=== PATIENT | female | born 1990 | race Caucasian/White ===

== ENCOUNTER 2017-08-17 20:25 | Emergency (ER) | payer OTHER ==
[~2017-08-17] VITALS: Ht 170.2 cm; Wt 63.3 kg
[2017-08-17 20:52] LABS: POINT-OF-CARE METER ID UU13113778; POINT-OF-CARE USER ID 611181311
[2017-08-17 21:45] LABS: ADD MIUA? NO; BILIRUBIN NEGATIVE; BLOOD NEGATIVE; COLOR YELLOW ((YELLOW)); GLUCOSE (STRIP) >=500; KETONES 80; LEUKOCYTES NEGATIVE; NITRITE NEGATIVE; PROTEIN (STRIP) NEGATIVE; SPECIFIC GRAVITY 1.029 (1.000-1.030); UROBILINOGEN 0.2 MG/DL (0.2-1.0)
[2017-08-17 22:04] LABS: UCUL ADDED? NO
[2017-08-17 23:16] LABS: HEMATOCRIT 39.3 % (36.0-46.0); MCH 28.4 PG (29.0-34.0); MCHC 33.3 G/DL (30.0-36.0); MCV 85.2 FL (83-99); MEAN PLAT.VOLUME 8.6 uM^3 (9.5-12.4); PLATELET COUNT 261 K/uL (156-360); RBC DIS.WIDTH-CV 13.4 % (11.8-14.6); RED BLOOD COUNT 4.61 M/uL (3.80-5.20); WHITE BLOOD COUNT 5.4 K/uL (4.1-10.2)
[2017-08-17 23:24] LABS: CHLORIDE 99 mEq/L (99-109); POTASSIUM 3.9 mEq/L (3.7-5.4); SODIUM 133 mEq/L (136-147)
[2017-08-17 23:26] LABS: GLUCOSE 230 mg/dL (70-99)
[2017-08-17 23:27] LABS: ANION GAP 10 MEQ/L (2-14)
[2017-08-17 23:29] LABS: ALKALINE PHOSPHATASE 95 IU/L (3-129)
[2017-08-17 23:30] LABS: GFR ESTIMATE (CALCULATED) > 59 mL/min/
[2017-08-17 23:31] LABS: UREA NITROGEN (BUN) 10 mg/dL (9-23)
[2017-08-17 23:38] LABS: QUANTITATIVE HCG < 4.0 MIU/ML
[2017-08-18 01:20] LABS: POINT-OF-CARE METER ID UU13113747
[2017-08-18 03:15] LABS: POINT-OF-CARE METER ID UU13113747
[2017-08-18 03:49] VITALS: BP 119/71
== END 2017-08-18 03:52 | disposition home or self-care (01) ==
LOC: EME 20:25
PROVIDERS: Emergency Medicine
DX: E10.65 Type 1 diabetes mellitus with hyperglycemia (principal); F17.200 Nicotine dependence, unspecified, uncomplicated
CPT/HCPCS: 80053; 81003; 82803; 82948; 84702; 85027; 99281; 99285

== ENCOUNTER 2017-10-07 01:24 | Emergency (ER) | payer OTHER ==
[~2017-10-07] VITALS: Ht 170.2 cm; Wt 69.6 kg
[2017-10-07 02:13] LABS: CARBON DIOXIDE (BICARBONATE) 29.9 MEQ/L (20-31)
[2017-10-07 02:14] LABS: HEMATOCRIT 35.1 % (36.0-46.0); MCH 29.1 PG (29.0-34.0); MCHC 32.8 G/DL (30.0-36.0); MCV 88.9 FL (83-99); MEAN PLAT.VOLUME 8.6 uM^3 (9.5-12.4); PLATELET COUNT 277 K/uL (156-360); RBC DIS.WIDTH-CV 13.2 % (11.8-14.6); RBC DIS.WIDTH-SD 43.3 % (39-53); RED BLOOD COUNT 3.95 M/uL (3.80-5.20); WHITE BLOOD COUNT 4.9 K/uL (4.1-10.2)
[2017-10-07 02:24] LABS: CHLORIDE 99 mEq/L (99-109); POTASSIUM 4.4 mEq/L (3.7-5.4); SODIUM 133 mEq/L (136-147)
[2017-10-07 02:25] LABS: MAGNESIUM 2.1 mg/dL (1.3-2.7)
[2017-10-07 02:28] LABS: ANION GAP 9 MEQ/L (2-14)
[2017-10-07 02:29] LABS: TOTAL BILIRUBIN 0.5 mg/dL (0.0-1.0)
[2017-10-07 02:31] LABS: ALKALINE PHOSPHATASE 110 IU/L (3-129); GFR ESTIMATE (CALCULATED) > 59 mL/min/
[2017-10-07 02:32] LABS: UREA NITROGEN (BUN) 17 mg/dL (9-23)
[2017-10-07 02:34] LABS: CREATINE KINASE 75 IU/L (1-294); LIPASE 25 U/L (1.0-51.0); TOTAL CK 75 IU/L (1-294)
[2017-10-07 02:40] LABS: QUANTITATIVE HCG < 4.0 MIU/ML
[2017-10-07 02:42] LABS: SAMPLE HEMOLYSIS CHECK 0; SAMPLE ICTERIC CHECK 0; SAMPLE LIPEMIA CHECK 0
[2017-10-07 02:51] LABS: GLUCOSE 502 mg/dL (70-99)
[2017-10-07 03:17] LABS: POINT-OF-CARE METER ID UU13113702
[2017-10-07 03:24] LABS: ADD MIUA? NO; BILIRUBIN NEGATIVE; BLOOD NEGATIVE; COLOR COLORLESS ((YELLOW)); GLUCOSE (STRIP) >=500; KETONES NEGATIVE; LEUKOCYTES NEGATIVE; NITRITE NEGATIVE; PROTEIN (STRIP) NEGATIVE; SPECIFIC GRAVITY 1.024 (1.000-1.030); UCUL ADDED? NO; UROBILINOGEN 0.2 MG/DL (0.2-1.0)
[2017-10-07 05:03] LABS: POINT-OF-CARE METER ID UU13113702
[2017-10-07] MEDS ORDERED: LIDODERM 5% P1 PATCH TD (05:27)
[2017-10-07] MEDS ORDERED: COLACE100 MG PO (05:27)
[2017-10-07 05:46] VITALS: BP 112/80
[2017-10-07 08:01] LABS: Estimated Average Glucose 203 mg/dL (70-123); HEMOGLOBIN A1c (GLYCOHEMOGLOB) 8.7 % HGB (Below 5.7)
== END 2017-10-07 05:50 | disposition home or self-care (01) ==
LOC: EME 01:24
PROVIDERS: Emergency Medicine
DX: K59.00 Constipation, unspecified (principal); E10.65 Type 1 diabetes mellitus with hyperglycemia; Z79.4 Long term (current) use of insulin; M54.5 Low back pain; F17.200 Nicotine dependence, unspecified, uncomplicated
CPT/HCPCS: 74176; 80053; 81003; 82010; 82550; 82553; 82803; 82948; 83036; 83605; 83690; 83735; 84100; 84702; 85027; 99281; 99285; J1885; J2270; J7030

== ENCOUNTER 2018-02-11 17:38 | Emergency (ER) | payer OTHER ==
[~2018-02-11] VITALS: Ht 170.2 cm; Wt 60.4 kg
[~2018-02-11 17:38] MED LIST: COLACE100 MG PO; LIDODERM 5% P1 PATCH TD
[2018-02-11 18:11] VITALS: BP 127/81
== END 2018-02-11 18:13 | disposition home or self-care (01) ==
LOC: EME 17:38
DX: T40.1X1A Poisoning by heroin, accidental (unintentional), initial encounter (principal); F17.200 Nicotine dependence, unspecified, uncomplicated; E10.9 Type 1 diabetes mellitus without complications
CPT/HCPCS: 82948; 99281; 99283

== ENCOUNTER 2018-03-20 23:45 | Emergency (ER) | payer OTHER ==
[~2018-03-20] VITALS: Ht 170.2 cm; Wt 68.7 kg
[2018-03-21 01:06] LABS: HEMATOCRIT 35.6 % (36.0-46.0); HEMOGLOBIN 12.4 G/DL (11.9-15.5); MCH 29.5 PG (29.0-34.0); MCHC 34.8 G/DL (30.0-36.0); MCV 84.8 FL (83-99); PLATELET COUNT 272 K/uL (156-360); RBC DIS.WIDTH-CV 14.2 % (11.8-14.6); RBC DIS.WIDTH-SD 43.9 % (39-53); WHITE BLOOD COUNT 7.6 K/uL (4.1-10.2)
[2018-03-21 01:19] LABS: CHLORIDE 108 mEq/L (99-109); POTASSIUM 3.9 mEq/L (3.7-5.4); SODIUM 140 mEq/L (136-147)
[2018-03-21 01:21] LABS: GLUCOSE 75 mg/dL (70-99)
[2018-03-21 01:24] LABS: SERUM ETHYL ALCOHOL < 10 mg/dL
[2018-03-21 01:25] LABS: CREATININE 0.7 mg/dL (0.6-1.3); GFR ESTIMATE (CALCULATED) > 59 mL/min/
[2018-03-21 01:26] LABS: UREA NITROGEN (BUN) 11 mg/dL (9-23)
[2018-03-21 01:57] LABS: AMPHETAMINE NEGATIVE (500 ng/mL); BARBITURATES NEGATIVE (200 ng/mL); BENZODIAZEPINES NEGATIVE (150 ng/mL); BUPRENORPHINE NEGATIVE (10 ng/mL); COCAINE NEGATIVE (150 ng/mL); METHADONE NEGATIVE (200 ng/mL); METHAMPHETAMINE NEGATIVE (500 ng/mL); OPIATES (MORPHINE) PRESUMPTIVE POSITIVE (100 ng/mL); OXYCODONE NEGATIVE (100 ng/mL); PHENCYCLIDINE NEGATIVE (25 ng/mL); PROPOXYPHENE NEGATIVE (300 ng/mL); THC CANNABINOIDS NEGATIVE (50 ng/mL); TRICYCLIC ANTIDEPRESSANTS NEGATIVE (300 ng/mL)
[2018-03-21] MEDS ORDERED: NARCAN4 MG NS (04:44)
[2018-03-21] MEDS ORDERED: ULTRAM50 MG PO (05:14)
[2018-03-21] MEDS ORDERED: CLONIDINE HCL0.1 MG PO (05:14)
[2018-03-21 05:21] VITALS: BP 110/68
== END 2018-03-21 05:26 | disposition home or self-care (01) ==
LOC: EME 23:45
DX: F11.23 Opioid dependence with withdrawal (principal); E10.8 Type 1 diabetes mellitus with unspecified complications; F32.9 Major depressive disorder, single episode, unspecified; R45.851 Suicidal ideations; F17.200 Nicotine dependence, unspecified, uncomplicated
CPT/HCPCS: 80048; 84999; 85027; 90839; 99281; 99285; G0480